=== PATIENT | female | born 1960 | race Caucasian/White ===

== ENCOUNTER → 2019-02-20 | Outpatient (REF) ==
--- NOTE | 2019-02-20 15:00 | REP ---
PARTIAL LUMBAR SPINE, THREE VIEWS: HISTORY: Degenerative disc disease. There is no acute fracture. The L4-5 and L5-S1 intervertebral discs are decreased in height consistent with disc degeneration. Osteophytes are present on T12 through L2. There are 8 mm of grade 1 spondylolisthesis of L5 on S1. There appear to be L5 pars defects. IMPRESSION: Degenerative change, as described above. CT of the lumbar spine may be helpful for further evaluation of the spondylolisthesis. Electronically Signed by Bk Murry MD 02/20/2019 03:05 P
--- NOTE | 2019-02-20 15:28 | REP ---
Clinical: Pain with history of right ankle surgery. Technique: AP, lateral, bilateral oblique views of the right ankle. Findings: Moderate to advanced generalized arthritic and post traumatic degenerative changes are appreciated including lateral narrowing to the tibiotalar joint space, generalized osteodystrophy, scattered cortical irregularities and spurring/osteophyte formation as well as generalized subchondral sclerosis and heterogeneity to the osseous structures. Lateral view demonstrates pes planus. Impression: Moderate to advanced generalized arthritic and post traumatic degenerative changes. Electronically Signed by Magdi Urrutia MD 02/20/2019 03:20 P
== END ==
LOC: M SMT 13:49
PROVIDERS: ATTEND Internal Medicine
DX: M51.37 Other intervertebral disc degeneration, lumbosacral region (principal)

== ENCOUNTER → 2022-10-19 | Outpatient (CLI) | payer OTHER ==
[~2022-10-19] MED LIST: METHACHOLINE KIT (J7674) INH ONE
== END ==
LOC: M CARPUL 09:43
PROVIDERS: ATTEND Internal Medicine Pulmonary Disease
DX: R06.00 Dyspnea, unspecified (principal)
CPT/HCPCS: 94070; 95070; J7674

== ENCOUNTER → 2023-02-15 | Outpatient (POV) | payer OTHER ==
[~2023-02-15] VITALS: Ht 162.6 cm; Wt 125.0 kg
[2023-02-15 09:30] VITALS: BP 130/88
== END ==
LOC: M IRPOV 09:19
PROVIDERS: ATTEND Radiology Diagnostic Radiology
DX: K76.89 Other specified diseases of liver (principal)